=== PATIENT | female | born 1935 | race Caucasian/White ===

== ENCOUNTER 2019-11-28 03:47 | Emergency (ER) | payer MEDICARE ==
[~2019-11-28] VITALS: Ht 160 cm; Wt 105.0 kg
[2019-11-28 04:05] LABS: BASO % 0.2 % (0.0-1.0); EOS % 0.2 % (1.0-4.0); HEMATOCRIT 30.2 % (37.0-47.0); HEMOGLOBIN 9.5 g/dl (12.0-16.0); LYMPH # 0.7 10*3/uL (1.3-4.4); MEAN CELL VOLUME 104.9 fl (81.0-99.0); MEAN CORPUSCULAR HGB CONC 31.5 g/dl (33.0-37.0); MEAN PLATELET VOLUME 12.2 fl (9.6-12.3); MONO # 0.7 10*3/uL (0.1-1.0); MONO % 17.2 % (3.0-9.0); NEUT # 2.8 10*3/uL (2.3-7.9); PLATELET COUNT AUTOMATED 115 10*3/uL (130-400); RED BLOOD COUNT 2.88 10*6/uL (4.10-5.10); RED CELL DISTRI WIDTH 13.7 % (0-14.5); WHITE BLOOD COUNT 4.2 10*3/uL (4.8-10.8)
[2019-11-28 04:15] LABS: ACT PARTIAL THROMBO TIME 24.8 SECONDS (20.0-32.1)
[2019-11-28 04:22] LABS: ALKALINE PHOSPHATASE 49 U/L (45-117); BUN 35 mg/dl (7-24); CHLORIDE 99 mmol/L (98-107); CREATININE 1.61 mg/dL (0.55-1.02); SGOT/AST 8 IU/L (3-35); SGPT/ALT 15 U/L (12-78); SODIUM 137 mmol/L (136-145); TOTAL PROTEIN 6.3 gm/dL (6.4-8.2)
[2019-11-28 04:24] LABS: TROPONIN I < 0.015 ng/ml (<0.045)
[2019-11-28] MEDS ORDERED: ASPIRIN ADULT L81 M1 PO (06:12)
[2019-11-28] MEDS ORDERED: BUMETANIDE2 MG PO (06:13)
[2019-11-28] MEDS ORDERED: LIPITOR20 MG PO (06:13)
[2019-11-28] MEDS ORDERED: Clopidogrel75 MG PO (06:13)
[2019-11-28] MEDS ORDERED: VITAMIN B-12100 MCG PO (06:14)
[2019-11-28] MEDS ORDERED: DULCOLAX10 M1 R (06:14)
[2019-11-28] MEDS ORDERED: LEXAPRO10 MG PO (06:14)
[2019-11-28] MEDS ORDERED: ISOSORBIDE MONO20 MG PO (06:15)
[2019-11-28] MEDS ORDERED: FERRO-TIME325 MG PO (06:15)
[2019-11-28] MEDS ORDERED: LANSOPRAZOLE30 M2 PO (06:16)
[2019-11-28] MEDS ORDERED: LEVEMIR FL100 UNIT/1 SQ (06:16)
[2019-11-28] MEDS ORDERED: LEVOTHYROXINE175 MCG PO (06:17)
[2019-11-28] MEDS ORDERED: KEPPRA250 MG PO (06:17)
[2019-11-28] MEDS ORDERED: MILK OF MA400 MG/5 M PO (06:18)
[2019-11-28] MEDS ORDERED: LOPRESSOR25 MG PO (06:18)
[2019-11-28] MEDS ORDERED: LOSARTAN POTASS25 M1 PO (06:18)
[2019-11-28] MEDS ORDERED: MIRALAX17 GM PO (06:19)
[2019-11-28] MEDS ORDERED: NOVOLOG FL100 UNIT/2 SQ (06:19)
[2019-11-28] MEDS ORDERED: SOLIFENACIN SUCC5 MG PO (06:20)
[2019-11-28] MEDS ORDERED: TAMSULOSIN HCL0.4 MG PO (06:20)
[2019-11-28] MEDS ORDERED: RANEXA500 M1 PO (06:20)
[2019-11-28] MEDS ORDERED: TRAZODONE50 MG PO (06:21)
[2019-11-28] MEDS ORDERED: VITAMIN D32000 UNI2 PO (06:22)
[2019-11-28] MEDS ORDERED: NATURAL SENNA8.6 MG PO (06:22)
== END 2019-11-28 07:09 | disposition left against medical advice (07) ==
LOC: ED 03:47
PROVIDERS: Emergency Medicine
DX: R07.9 Chest pain, unspecified (principal); I48.91 Unspecified atrial fibrillation; F03.90 Unspecified dementia, unspecified severity, without behavioral disturbance, psychotic disturbance, mood disturbance, and anxiety; K21.9 Gastro-esophageal reflux disease without esophagitis; I10 Essential (primary) hypertension; E11.9 Type 2 diabetes mellitus without complications; E03.9 Hypothyroidism, unspecified; I25.10 Atherosclerotic heart disease of native coronary artery without angina pectoris; Z88.1 Allergy status to other antibiotic agents; Z91.041 Radiographic dye allergy status; Z88.7 Allergy status to serum and vaccine; Z88.2 Allergy status to sulfonamides; Z88.8 Allergy status to other drugs, medicaments and biological substances; Z79.82 Long term (current) use of aspirin; Z79.899 Other long term (current) drug therapy; Z79.4 Long term (current) use of insulin; Z86.73 Personal history of transient ischemic attack (TIA), and cerebral infarction without residual deficits